=== PATIENT | female | born 1965 | race Caucasian/White ===

== ENCOUNTER 2018-10-13 14:05 | Emergency (ER) | payer BC ==
[2018-10-13 14:39] VITALS: BP 130/68
--- NOTE | 2018-10-13 14:48 | UC ---
UC General HPI - HPI Summary HPI Summary: PT HAS A HX OF CHRONIC SINUS CONGESTION AND A DEVIATED SEPTUM. 48 HOURS AGO THE CONGESTION GOT MUCH WORSE CAUSING SINUS PAIN AND THE DRAINAGE TURNED GREEN. PT ALSO HAVING SUBJECTIVE FEVER. SHE IS TX'ING WITH OTC MEDICATIONS WITH NO RELIEF. STATES HX SINUS INFECTION DUE TO SEPTUM ISSUES AND THIS IS THE SAME. - History of Current Complaint Chief Complaint: UCGeneralIllness Stated Complaint: SINUS,ST Time Seen by Provider: 10/13/18 14:36 Hx Obtained From: Patient Hx Last Menstrual Period: uterine ablation Onset/Duration: Gradual Onset Timing: Constant Pain Intensity: 0 Associated Signs & Symptoms: Positive: Headache - Allergy/Home Medications Allergies/Adverse Reactions: Allergies Allergy/AdvReac Type Severity Reaction Status Date / Time No Known Allergies Allergy Verified 10/13/18 14:34 Home Medications: Home Medications Ibuprofen TAB* [Advil TAB*] 400 mg PO Q6H PRN 10/13/18 [History Confirmed ] Omeprazole 40 mg PO DAILY 10/13/18 [History Confirmed 10/13/18] PMH/Surg Hx/FS Hx/Imm Hx - Additional Past Medical History Additional PMH: DEVIATED SEPTUM, CHRONIC SINUS CONGESTION Endocrine History: Thyroid Disease GI/ History: Gastroesophageal Reflux - Surgical History Surgical History: Yes Surgery Procedure, Year, and Place: Uteran ablation. rectacele procedure 2016. sandra 2004 - Social History Occupation: Employed Full-time Alcohol Use: Daily Alcohol Amount: 1 glass of wine Substance Use Type: None Smoking Status (MU): Never Smoked Tobacco - Immunization History Vaccination Up to Date: Yes Review of Systems All Other Systems Reviewed And Are Negative: Yes Constitutional: Positive: Fever, Chills Skin: Positive: Negative Eyes: Positive: Negative ENT: Positive: Nasal Discharge, Sinus Congestion, Sinus Pain/Tenderness Respiratory: Positive: Negative Cardiovascular: Positive: Negative Gastrointestinal: Positive: Negative Genitourinary: Positive: Negative Motor: Positive: Negative Neurovascular: Positive: Negative Musculoskeletal: Positive: Negative Neurological: Positive: Headache Psychological: Positive: Negative Is Patient Immunocompromised?: No Physical Exam Triage Information Reviewed: Yes Appearance: Well-Appearing Vital Signs: Initial Vital Signs Temp 98.5 F 10/13/18 14:35 Pulse 64 10/13/18 14:35 Resp 15 10/13/18 14:35 BP 130/68 10/13/18 14:35 Pulse Ox 100 01/15/19 14:35 Vital Signs Reviewed: Yes Eyes: Positive: Conjunctiva Clear ENT: Positive: Pharynx normal, Nasal congestion, TMs normal, Sinus tenderness. Negative: Nasal drainage Neck: Positive: Supple, Nontender, No Lymphadenopathy Respiratory: Positive: Lungs clear, Normal breath sounds Cardiovascular: Positive: RRR, No Murmur Abdomen Description: Positive: Nontender, No Organomegaly, Soft Bowel Sounds: Positive: Present Musculoskeletal: Positive: ROM Intact Neurological: Positive: Alert Psychological: Positive: Age Appropriate Behavior Skin Exam: Normal Course/Dx - Diagnoses Provider Diagnosis: Sinusitis Discharge - Sign-Out/Discharge Documenting (check all that apply): Patient Departure All imaging exams completed and their final reports reviewed: No Studies - Discharge Plan Condition: Stable Disposition: HOME Prescriptions: Amoxicillin/Clavulanate TAB* [Augmentin TAB 875*] 875 mg PO BID 10 Days #20 tab Patient Education Materials: Sinusitis (ED) Referrals: Rock SALAZAR,Olivia Herman [Primary Care Provider] - 7 Days - Billing Disposition and Condition Condition: STABLE Disposition: Home
== END 2018-10-13 14:53 | disposition home or self-care (01) ==
LOC: UCCORT 14:05
DX: J32.9 Chronic sinusitis, unspecified (principal)
CPT/HCPCS: 99212; G0463